=== PATIENT | female | born 1955 | race Caucasian/White ===

== ENCOUNTER 2017-09-19 12:14 | Day surgery (SDC) | payer OTHER ==
[2017-09-19] MEDS ORDERED: PROPOFOL 20 ML (15:39)
== END 2017-09-19 16:34 | disposition home or self-care (01) ==
LOC: GIL 12:14
DX: K29.50 Unspecified chronic gastritis without bleeding (principal); K44.9 Diaphragmatic hernia without obstruction or gangrene; I10 Essential (primary) hypertension
CPT/HCPCS: 43239; 88305; 88312